=== PATIENT | female | born 1950 | race Hispanic/Latino ===

== ENCOUNTER 2016-11-17 09:20 | Outpatient (CLI) | payer MEDICARE | END 2016-11-17 09:21 | disposition home or self-care (01) | LOC: SPVWC 09:20 | PROVIDERS: ATTEND Internal Medicine | DX: Z12.31 Encounter for screening mammogram for malignant neoplasm of breast (principal) | CPT/HCPCS: 77067; G0202 ==

== ENCOUNTER 2016-12-08 09:51 | Outpatient (CLI) | payer MEDICARE ==
--- NOTE | 2016-12-08 10:48 | Mammography Report ---
RIGHT DIGITAL DIAGNOSTIC MAMMOGRAM : 12/08/16 09:51:00 CLINICAL: Recalled to evaluate new calcifications. COMPARISON:11/17/16 FINDINGS: ML and ML and CC magnification views demonstrate an increase in calcifications in the upper-outer quadrant near two stereotactic biopsy clips. 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 A new group of calcifications with similar morphology is located approximately posterior to the previously identified calcifications and clips. No associated mass or architectural distortion. IMPRESSION: Probably benign calcifications.Although there are new calcifications and an increased number of calcifications compared to prior exams, the calcifications have similar morphology as the previously biopsied calcifications. BI-RADS CATEGORY: 3 -- Probably Benign RECOMMENDATION: 6 month follow-up magnification views right breast. ACR BI-RADS MAMMOGRAPHIC CODES: 0 = Needs additional imaging evaluation; 1 = Negative; 2 = Benign; 3 = Probably benign; 4 = Suspicious; 5 = Malignant; 6 = Known biopsy-proven malignancy COMMENT: 1. Dense breast tissue, i.e., adenosis, fibrocystic changes, etc., may obscure an underlying neoplasm. 2. Approximately 10% of cancers are not detected with mammography. 3. A negative mammography report should not delay biopsy if a clinically suspicious mass is present. COMMENT: Patient follow-up letters are generated by our [employer] application.
== END 2016-12-08 09:52 | disposition home or self-care (01) ==
LOC: SPVWC 09:51
PROVIDERS: ATTEND Internal Medicine
DX: R92.1 Mammographic calcification found on diagnostic imaging of breast (principal)
CPT/HCPCS: G0206-RT